=== PATIENT | female | born 1985 | race Caucasian/White ===

== ENCOUNTER 2023-07-27 17:22 | Observation (INO) | payer OTHER ==
[2023-07-27 20:13] LABS: Absolute Neutrophil Ct (ANC) 9.19 x10^3/uL (1.4-6.9); BASOPHIL % 0.5 % (0.0-0.4); Basophil (Absolute #) 0.06 x10^3/uL (0-0.4); Eosinophil (Absolute #) 0.12 x10^3/uL (0-0.5); Hemoglobin 13.5 g/dL (12.0-16.0); IMMATURE GRAN # 0.06 x10^3u/L (0.00-0.03); IMMATURE GRAN % 0.5 % (0.00-0.4); Lymphocyte (Absolute #) 1.93 x10^3/uL (1.0-4.6); Lymphocytes % 16.2 % (24.0-44.0); Mean Corpuscular Hemoglobin 28.2 pg (26-32); Mean Corpuscular Hgb Concent. 31.4 g/dL (32-36); Monocyte (Absolute #) 0.53 x10^3/uL (0.0-1.3); Monocytes % 4.5 % (0.0-12.0); Neutrophil % 77.3 % (36.0-66.0); Platelet Count 286 x10^3/uL (150-450); Red Blood Count 4.78 x10^6/uL (4.1-5.4); Red Cell Distribution Width 14.2 % (11.5-14.0); White Blood Count 11.9 x10^3/uL (4.0-10.5)
[2023-07-27 20:24] LABS: HCG SERUM TEST NEGATIVE (NEGATIVE)
[2023-07-27 20:26] LABS: ALBUMIN 4.1 g/dL (3.5-5.0); ANION GAP 11.2 MEQ/L (5-15); BILIRUBIN,TOTAL 0.4 mg/dL (0.2-1.3); Calcium 9.3 mg/dL (8.4-10.2); Creatinine 1 0.66 mg/dL (0.52-1.04); EST GLOMERULAR FILTRATION RATE 115.1 ML/MIN; Potassium 4.1 mmol/L (3.5-5.1); Total Protein 7.6 g/dL (6.3-8.2)
[2023-07-27 20:27] LABS: INR 0.9 (0.8-3.0); PROTIME 9.9 SECONDS (9.4-12.5); PTT 25.7 SECONDS (25.1-36.5)
[2023-07-27 21:01] LABS: ADD URINE CULTURE? NO (NO); Appearance Clear (Clear); Bacteria None Seen /HPF (None Seen); Bilirubin Negative (Negative); Blood Moderate (Negative); Epithelial Cells Rare /HPF (None Seen); Glucose, Urine Negative (Negative); Hyaline Casts NONE SEEN /LPF (0-2); Ketones Negative (Negative); Leukocyte Esterase Negative (Negative); Nitrite Negative (Negative); Protein,Urine Dip Negative (Negative); RBC 0-2 /HPF (0-5); Specific Gravity 1.015 (1.005-1.030); Urobilinogen 0.2 mg/dL (0.2); WBC 0-2 /HPF (0-5)
--- NOTE | 2023-07-27 22:04 | ERPHSYRPT ---
- History of Present Illness Time Seen by Provider: 07/27/23 19:46 Source: patient Exam Limitations: no limitations Patient Subjective Stated Complaint: pt reports yesterday while doing some light housework she started to have facial tingling, shortness of breath, and some pins and needles sensations. pt reports she presented to the ED at [facility] and was evaluated and discharged. pt reports today at work she started to feel worse and had similar s/s. states she felt heavy all over and felt like she might pass out. states shes also had a slight headache since then as well. Triage Nursing Assessment: pt is aox3, pupils perrl, speech is clear, no facial droop noted, pt hand headhunter strong and equal, pt is calm, afebrile, resps easy and non labored, cap refill < 3 seconds, radial pulses strong and equal, abd soft non tender, pt skin pink warm dry. pt ambulatory to trt room with no difficulties at this time. Physician History: Patient is here with near syncopal episodes over the past 24 hours with 3 hospital visits. Patient states that she was doing some light housework yesterday and started feeling some facial tingling, shortness of breath, some pins and needle sensation. No chest pain. Shortness of breath was only momentary. No longer feeling short of breath. No other signs or symptoms of a pulmonary embolism. Patient was seen at [facility] emergency department. She states that she had a head CT" negative workup". States that she continued to have paresthesias and facial numbness today. This was a bilateral. No unilateral, localizing symptoms. She saw her PCP and some blood work was orderjay d. Patient states that she still feels "heavy all over". With a slight headache. Therefore returns to the emergency department tonight Allergies/Adverse Reactions: Latex, Natural Rubber Allergy (Verified 07/27/23 19:50) Home Medications: Albuterol Sulfate Mdi [ALBUTEROL/Proair Hfa MDI] 2 puffs IH UD 07/27/23 [History] Biotin/Lutein [Biotin Plus 5,000 Mcg Tablet] 1 each PO DAILY 07/27/23 [History] Cholecalciferol (Vitamin D3) [Vitamin D3] 125 mcg PO DAILY 07/27/23 [History] Cyanocobalamin (Vitamin B-12) [Vitamin B12] 1,000 mcg PO DAILY 07/27/23 [History] Famotidine [Pepcid] 40 mg PO DAILY 07/27/23 [History] Fluticasone/Umeclidin/Vilanter [Trelegy Ellipta 200-62.5-25] 1 puff IH DAILY 07/27/23 [History] Folic Acid 0.8 mg PO DAILY 07/27/23 [History] Iron 65 mg PO DAILY 07/27/23 [History] Labetalol HCl 100 mg [Trandate 100 MG] 1.5 mg PO DAILY 07/27/23 [History] Loratadine 10 mg [Claritin 10 mg] 10 mg PO DAILY 07/27/23 [History] Metformin HCl [Metformin HCl ER] 750 mg PO BID 07/27/23 [History] Methylcellulose [Citrucel] 500 mg PO DAILY 07/27/23 [History] Naproxen 500 mg [Naprosyn 500 MG] 500 mg PO BIDPRN PRN 07/27/23 [History] Ondansetron ODT 4 MG [Zofran Odt 4 mg] 4 mg PO Q6HPRN PRN 07/27/23 [History] PANTOPRAZOLE 40 mg Tablet [Protonix 40MG Tablet] 40 mg PO DAILY 07/27/23 [History] Vitamin E (Dl,Tocopheryl Acet) [Vitamin E] 180 mg PO DAILY 07/27/23 [History] hydroCHLOROthiazide [Hydrochlorothiazide] 12.5 mg PO DAILY 07/27/23 [History] Hx Tetanus, Diphtheria Vaccination/Date Given: (unk) Hx Influenza Vaccination/Date Given: No Hx Pneumococcal Vaccination/Date Given: No Immunizations Up to Date: Yes Travel Risk - International Travel Have you traveled outside of the country in past 3 weeks: No - Coronavirus Screening Are you exhibiting any of the following symptoms?: No Close contact with a COVID-19 positive Pt in past 14-21 Days: No - Vaccine Status Have you recieved a Covid-19 vaccination: No - Past Medical History Pertinent Past Medical History: Yes Cardiac History: Hypertension Respiratory History: Asthma, Sleep Apnea Musculoskeletal History: Arthritis GI Medical History: GERD, Gallbladder Disease Female Reproductive Disorders: Other Other Medical History: pre-diabetic. cyst on L kidney and kidney stone. PCOS. arthritis back and knee - Social History Smoking Status: Never smoker Exposure to second hand smoke: No Drug Use: none Patient Lives Alone: No - Female History Hx Last Menstrual Period: 07/27/23 Hx Now: No - Nursing Vital Signs Nursing Vital Signs: Initial Vital Signs Pulse Rate 87 07/27/23 19:35 Respiratory Rate 18 07/27/23 19:35 Blood Pressure 135/88 07/27/23 19:35 O2 Sat by Pulse Oximetry 97 07/27/23 19:35 Pain Scale Pain Intensity 0 - Physical Exam SpO2: 96 Comments: 07/27/23 22:37 Review of Systems Constitutional: Negative for fever. HENT: Negative for congestion. Respiratory: Negative for shortness of breath. Cardiovascular: Negative for chest pain. Gastrointestinal: Negative for abdominal pain. Genitourinary: Negative for dysuria. Musculoskeletal: Negative for back pain. Skin: Negative for rash. Neurological: Negative for headaches. Psychiatric/Behavioral: Negative for behavioral problems. All other systems reviewed and are negative. Physical Exam Vitals signs and nursing note reviewed. Constitutional: Appearance: Patient is well-developed. HENT: Head: Normocephalic and atraumatic. Eyes: Conjunctiva/sclera: Conjunctivae normal. Neck: Musculoskeletal: Normal range of motion. Trachea: No tracheal deviation. Cardiovascular: Rate and Rhythm: Normal rate. Pulmonary: Effort: Pulmonary effort is normal. No respiratory distress. Abdominal: Palpations: Abdomen is soft. Musculoskeletal: General: No deformity. Skin: General: Skin is warm and dry. Neurological/ Psychiatric: Mental Status: Mental status, behavior, interaction with environment is appropriate for patient's age and condition Motor: There is no pronator drift of out-stretched arms. Muscle bulk and tone are normal. Strength is full bilaterally. Reflexes: Reflexes are 2+ and symmetric at the biceps, triceps, knees, and ankles. Plantar responses are flexor. Sensory: Light touch sense are intact in bilateral upper and lower extremities. There is no sign of neglect. Coordination: Rapid alternating movements are intact. There is no dysmetria on [id number] and [id number]. There are no abnormal or extraneous movements. Romberg is absent. Gait/Stance: Posture is normal, patient is ambultory without difficuly to bed - Course Nursing assessment & vital signs reviewed: Yes EKG Interpreted by Me: Sinus Rhythm (Sinus rhythm, rate of 85, AK interval 162, QRS 105, QTc is 430, no STEMI, no other ST changes) Ordered Tests: Active Orders 24 hr Category Date Time Status Bedrest ROUTINE Activity 07/27/23 22:15 Active Call Admit Doctor for Orders ON ADMISSION Care 07/27/23 22:15 Active Agriculture Teacher STAT Care 07/27/23 19:48 Active Code Status Order ROUTINE Care 07/27/23 22:15 Active EKG-ER Only STAT Care 07/27/23 19:47 Active Fall Protocol ROUTINE Care 07/27/23 22:15 Active IV Insertion STAT Care 07/27/23 19:47 Active NPO (ED) STAT Care 07/27/23 19:[address] in Observation ROUTINE Care 07/27/23 22:15 Active House Regular Diet Diet 07/28/23 Breakfast Active CHEST 1 VIEW (PORTABLE) Stat Exams 07/27/23 19:48 Taken HEAD WITHOUT CONTRAST [CT] Stat Exams 07/27/23 19:48 Taken CBC W DIFF Stat Lab 07/27/23 20:00 Completed CMP Stat Lab 07/27/23 20:00 Completed HCG QUALITATIVE, SERUM Stat Lab 07/27/23 19:00 Completed PROTIME WITH INR Stat Lab 07/27/23 20:00 Completed PTT Stat Lab 07/27/23 20:00 Completed TROPONIN Q4H Lab 07/27/23 20:00 Completed TROPONIN Q4H Lab 07/28/23 00:00 Ordered TROPONIN Q4H Lab 07/28/23 04:00 Ordered UA W/RFX UR CULTURE Stat Lab 07/27/23 20:06 Completed Pulse Oximetry CONTINUOUS RT 07/27/23 22:15 Active Respiratory Therapy Consult ONCE RT 07/27/23 22:15 Active Lab/Rad Data: Laboratory Result Diagrams 07/27/23 20:00 07/27/23 20:00 Laboratory Results 07/27/23 07/27/23 07/27/23 Range/Units 20:06 20:00 20:00 WBC 11.9 H (4.0-10.5) x10^3/uL RBC 4.78 (4.1-5.4) x10^6/uL Hgb 13.5 (12.0-16.0) g/dL Hct 43.0 (35-47) % MCV 90.0 (78-100) fL MCH 28.2 (26-32) pg MCHC 31.4 L (32-36) g/dL RDW 14.2 H (11.5-14.0) % Plt Count 286 (150-450) x10^3/uL MPV 11.0 (7.5-11.0) fL Gran % 77.3 H (36.0-66.0) % Immature Gran % (Auto) 0.5 H (0.00-0.4) % Nucleat RBC Rel Count 0.0 (0.00-0.1) % Eos # (Auto) 0.12 (0-0.5) x10^3/uL Immature Gran # (Auto) 0.06 H (0.00-0.03) x10^3u/L Absolute Lymphs (auto) 1.93 (1.0-4.6) x10^3/uL Absolute Monos (auto) 0.53 (0.0-1.3) x10^3/uL Absolute Nucleated RBC 0.00 (0.00-0.01) x10^3u/L Lymphocytes % 16.2 L (24.0-44.0) % Monocytes % 4.5 (0.0-12.0) % Eosinophils % 1.0 (0.00-5.0) % Basophils % 0.5 (0.0-0.4) % Absolute Granulocytes 9.19 H (1.4-6.9) x10^3/uL Basophils # 0.06 (0-0.4) x10^3/uL PT (9.4-12.5) SECONDS INR (0.8-3.0) APTT (25.1-36.5) SECONDS Sodium (135-145) mmol/L Potassium (3.5-5.1) mmol/L Chloride (98-107) mmol/L Carbon Dioxide (22-30) mmol/L Anion Gap (5-15) MEQ/L BUN (7-17) mg/dL Creatinine (0.52-1.04) mg/dL Estimated GFR ML/MIN Glucose (74-106) mg/dL Calcium (8.4-10.2) mg/dL Total Bilirubin (0.2-1.3) mg/dL AST (14-36) U/L ALT (0-35) U/L Alkaline Phosphatase (38-126) U/L Troponin I < 0.012 (0.000-0.034) ng/mL Serum Total Protein (6.3-8.2) g/dL Albumin (3.5-5.0) g/dL Serum HCG, Qual (NEGATIVE) Urine Color Yellow (Yellow) Urine Appearance Clear (Clear) Urine pH 8.0 (4.6-8.0) Ur Specific [place] 1.015 (1.005-1.030) Urine Protein Negative (Negative) Urine Glucose (UA) Negative (Negative) mg/dL Urine Ketones Negative (Negative) Urine Blood Moderate A (Negative) Urine Nitrite Negative (Negative) Urine Bilirubin Negative (Negative) Urine Urobilinogen 0.2 (0.2) mg/dL Ur Leukocyte Esterase Negative (Negative) U Hyaline Cast (Auto) NONE SEEN (0-2) /LPF Urine Microscopic RBC 0-2 (0-5) /HPF Urine Microscopic WBC 0-2 (0-5) /HPF Ur Epithelial Cells Rare (None Seen) /HPF Urine Bacteria None Seen (None Seen) /HPF Urine Culture Reflexed NO (NO) 07/27/23 07/27/23 07/27/23 Range/Units 20:00 20:00 19:00 WBC (4.0-10.5) x10^3/uL RBC (4.1-5.4) x10^6/uL Hgb (12.0-16.0) g/dL Hct (35-47) % MCV (78-100) fL MCH (26-32) pg MCHC (32-36) g/dL RDW (11.5-14.0) % Plt Count (150-450) x10^3/uL MPV (7.5-11.0) fL Gran % (36.0-66.0) % Immature Gran % (Auto) (0.00-0.4) % Nucleat RBC Rel Count (0.00-0.1) % Eos # (Auto) (0-0.5) x10^3/uL Immature Gran # (Auto) (0.00-0.03) x10^3u/L Absolute Lymphs (auto) (1.0-4.6) x10^3/uL Absolute Monos (auto) (0.0-1.3) x10^3/uL Absolute Nucleated RBC (0.00-0.01) x10^3u/L Lymphocytes % (24.0-44.0) % Monocytes % (0.0-12.0) % Eosinophils % (0.00-5.0) % Basophils % (0.0-0.4) % Absolute Granulocytes (1.4-6.9) x10^3/uL Basophils # (0-0.4) x10^3/uL PT 9.9 (9.4-12.5) SECONDS INR 0.90 (0.8-3.0) APTT 25.7 (25.1-36.5) SECONDS Sodium 140 (135-145) mmol/L Potassium 4.1 (3.5-5.1) mmol/L Chloride 103 (98-107) mmol/L Carbon Dioxide 30 (22-30) mmol/L Anion Gap 11.2 (5-15) MEQ/L BUN 10 (7-17) mg/dL Creatinine 0.66 (0.52-1.04) mg/dL Estimated GFR 115.1 ML/MIN Glucose 116 H (74-106) mg/dL Calcium 9.3 (8.4-10.2) mg/dL Total Bilirubin 0.40 (0.2-1.3) mg/dL AST 54 H (14-36) U/L ALT 70 H (0-35) U/L Alkaline Phosphatase 125 (38-126) U/L Troponin I (0.000-0.034) ng/mL Serum Total Protein 7.6 (6.3-8.2) g/dL Albumin 4.1 (3.5-5.0) g/dL Serum HCG, Qual NEGATIVE (NEGATIVE) Urine Color (Yellow) Urine Appearance (Clear) Urine pH (4.6-8.0) Ur Specific [place] (1.005-1.030) Urine Protein (Negative) Urine Glucose (UA) (Negative) mg/dL Urine Ketones (Negative) Urine Blood (Negative) Urine Nitrite (Negative) Urine Bilirubin (Negative) Urine Urobilinogen (0.2) mg/dL Ur Leukocyte Esterase (Negative) U Hyaline Cast (Auto) (0-2) /LPF Urine Microscopic RBC (0-5) /HPF Urine Microscopic WBC (0-5) /HPF Ur Epithelial Cells (None Seen) /HPF Urine Bacteria (None Seen) /HPF Urine Culture Reflexed (NO) - Progress Progress: improved Progress Note: 07/27/23 22:37 Differential diagnosis includes: PNA, STEMI, NSTEMI, other infection, musculoskeletal pain, pneumothorax - We'll obtain basic labs, fluids, EKG, troponin, chest x-ray - EKG shows no ST changes - my read - O2 saturations consistently greater than 95%. - CXR shows no pneumonia, pneumothorax - my read Also concern for some strokelike symptoms. Bilateral so less likely with a normal neuroexam. Therefore we did obtain a head CT, UA, coagulation labs These all returned negative. No obvious head bleed on head CT. I did discuss risks and benefits of staying in the hospital. This would be for continued close cardiac monitoring, potential MRI, echocardiogram tomorrow. This would be looking for any arrhythmia, possible stroke or other neurological issue. Patient and did ultimately decide to stay. I feel this is a good plan f orward. I did discuss over the phone with on-call physician, Dr. Frank Devlin. We did discuss the case in detail. Plan for admission. Hemodynamically stable at this point in time. Counseled pt/family regarding: lab results, diagnosis, need for follow-up, rad results - Departure Departure Disposition: Observation Clinical Impression: Near syncope Condition: Stable Critical Care Time: No Referrals: LEELEE SERRATO, [employer] [Primary Care Provider] - Follow up/PCP as directed
--- NOTE | 2023-07-28 00:15 | PCM.HP ---
History of Present Illness - Chief Complaint Chief Complaint: near syncope Date: 07/27/23 History of Present Illness: Ms. SAENZ is a 38 year old female with a past medical history significant for hypertension, diabetes, hyperlipidemia, asthma, sciatica and obesity who presents to the hospital after experiencing multiple episodes of parathesias with tingling/numbness down both arms and across her neck/shoulders over the 24hours. She went to one ER where she was told it was anxiety, and was discharged, but returned to [place] with worsening symptoms. CT head negative for bleed but she has been advised for admission to get further testing. No weakness, slurred speech or gross motor deficits. She continues to have some tingling down her arms. - Review of Systems Constitutional: No Symptoms, No Fever, No Chills, No Fatigue Eyes: No Vision Changes Ears, Nose, & Throat: No Symptoms Respiratory: Short Of Breath, No Cough, No Orthopnea Cardiac: No Chest Pain, No Edema, No Palpitations Abdominal/Gastrointestinal: No Abdominal Pain, No Nausea, No Vomiting, No Diarrhea Genitourinary Symptoms: No Dysuria, No Frequency, No Hematuria Musculoskeletal: No Back Pain, No Neck Pain Skin: No Cellulitis Neurological: Parasthesia, No Dizziness, No Focal Weakness, No Gait Changes, No Headache Psychological: No Suicidal Ideations Endocrine: No Polyuria, No Polydipsia Medications & Allergies Home Medications: Home Medication List Albuterol Sulfate Mdi [ALBUTEROL/Proair Hfa MDI] 2 puffs IH Q6HPRN PRN 07/27/23 [History Confirmed 07/27/23] Biotin/Lutein [Biotin Plus 5,000 Mcg Tablet] 5,000 mcg PO HS 07/27/23 [History Confirmed 07/27/23] Calcium/Magnesium/Zinc [Rxjymsc-Hhhzedlkj-Wreg Tablet] 1 each PO HS 07/27/23 [History Confirmed 07/27/23] Cholecalciferol (Vitamin D3) [Vitamin D3] 125 mcg PO HS 07/27/23 [History Confirmed 07/27/23] Cyanocobalamin (Vitamin B-12) [Vitamin B12] 1,000 mcg PO HS 07/27/23 [History Confirmed 07/27/23] Famotidine [Pepcid] 40 mg PO HS 07/27/23 [History Confirmed 07/27/23] Fluticasone/Umeclidin/Vilanter [Trelegy Ellipta 200-62.5-25] 1 puff IH DAILY 07/27/23 [History Confirmed 07/27/23] Folic Acid 0.8 mg PO HS 07/27/23 [History Confirmed 07/27/23] Iron 65 mg PO HS 07/27/23 [History Confirmed 07/27/23] Labetalol HCl 100 mg [Trandate 100 MG] 150 mg PO HS 07/27/23 [History Confirmed 07/27/23] Loratadine 10 mg [Claritin 10 mg] 10 mg PO HS 07/27/23 [History Confirmed 07/27/23] Metformin HCl [Metformin HCl ER] 750 mg PO BID 07/27/23 [History Confirmed 07/27/23] Methylcellulose [Citrucel] 500 mg PO HS 07/27/23 [History Confirmed 07/27/23] Naproxen 500 mg [Naprosyn 500 MG] 500 mg PO BIDPRN PRN 07/27/23 [History Confirmed 07/27/23] Ondansetron ODT 4 MG [Zofran Odt 4 mg] 4 mg PO Q6HPRN PRN 07/27/23 [History Confirmed 07/27/23] PANTOPRAZOLE 40 mg Tablet [Protonix 40MG Tablet] 40 mg PO HS 07/27/23 [History Confirmed 07/27/23] Vitamin E (Dl,Tocopheryl Acet) [Vitamin E] 180 mg PO HS 07/27/23 [History Confirmed 07/27/23] hydroCHLOROthiazide [Hydrochlorothiazide] 12.5 mg PO HS 07/27/23 [History Confirmed 07/27/23] Allergies/Adverse Reactions: Allergies Allergy/AdvReac Type Severity Reaction Status Date / Time Latex, Natural Rubber Allergy Verified 07/27/23 19:50 - Past Medical History Past Medical History: Yes Neurological History: No Pertinent History ENT History: No Pertinent History Cardiac History: Hypertension Respiratory History: Asthma, Sleep Apnea Endocrine Medical History: No Pertinent History Musculoskelatal History: Arthritis GI Medical History: GERD, Gallbladder Disease History: No Pertinent History Pyscho-Social History: No Pertinent History Reproductive Disorders: Other Comment: pre-diabetic. cyst on L kidney and kidney stone. PCOS. arthritis back and knee - Female History Hx Last Menstrual Period: 07/27/23 Are you now?: No - Past Surgical History Past Surgical History: Yes Neuro Surgical History: No Pertinent History Cardiac History: No Pertinent History Respiratory Surgery: No Pertinent History GI Surgical History: Cholecystectomy Genitourinary Surgical Hx: No Pertinent History Musculskeletal Surgical Hx: No Pertinent History Female Surgical History: No Pertinent History Other Surgical History: knee surgery - Social History Smoking Status: Never smoker Exposure to second hand smoke: No Alcohol: None Drug Use: none - Social Determinants of Health Will the patient participate in the screening: Yes Do you worry about a steady place to live?: No Do you have any problems with any of the following?: No known problems In the past 12 months,have you had to go without utilities?: No Have you or anyone in your house had to go without enough: No Transportation Issues: No Has anyone in your support network made you feel unsafe?: No Does the patient want assistance with any of the above?: No - Physical Exam Vital Signs: Vital Signs - 24 hr Temp Pulse Resp BP BP Pulse Ox 07/27/23 23:42 19 07/27/23 23:00 88 14 97 07/27/23 22:42 96.3 F 91 H 19 159/89 97 07/27/23 22:40 96 07/27/23 22:00 92 H 18 163/99 95 07/27/23 21:30 91 H 29 H 155/107 96 07/27/23 21:00 88 20 146/83 96 07/27/23 20:30 86 23 148/68 96 07/27/23 20:00 88 22 167/84 94 L 07/27/23 19:35 86 16 135/88 135/88 96 General Appearance: no apparent distress, alert Neurologic Exam: oriented x 3, cooperative Ears, Nose, Throat Exam: pharynx normal Neck Exam: non-tender, supple Respiratory Exam: lungs clear, No respiratory distress Cardiovascular Exam: regular rate/rhythm Gastrointestinal/Abdomen Exam: soft Extremity Exam: No pedal edema, No swelling Skin Exam: normal color, No rash Results - Labs Lab/Micro Results: Lab Results-Last 24 Hours 07/27/23 07/27/23 07/27/23 Range/Units 19:00 20:00 20:00 WBC (4.0-10.5) x10^3/uL RBC (4.1-5.4) x10^6/uL Hgb (12.0-16.0) g/dL Hct (35-47) % MCV (78-100) fL MCH (26-32) pg MCHC (32-36) g/dL RDW (11.5-14.0) % Plt Count (150-450) x10^3/uL MPV (7.5-11.0) fL Gran % (36.0-66.0) % Immature Gran % (Auto) (0.00-0.4) % Nucleat RBC Rel Count (0.00-0.1) % Eos # (Auto) (0-0.5) x10^3/uL Immature Gran # (Auto) (0.00-0.03) x10^3u/L Absolute Lymphs (auto) (1.0-4.6) x10^3/uL Absolute Monos (auto) (0.0-1.3) x10^3/uL Absolute Nucleated RBC (0.00-0.01) x10^3u/L Lymphocytes % (24.0-44.0) % Monocytes % (0.0-12.0) % Eosinophils % (0.00-5.0) % Basophils % (0.0-0.4) % Absolute Granulocytes (1.4-6.9) x10^3/uL Basophils # (0-0.4) x10^3/uL PT 9.9 (9.4-12.5) SECONDS INR 0.90 (0.8-3.0) APTT 25.7 (25.1-36.5) SECONDS Sodium 140 (135-145) mmol/L Potassium 4.1 (3.5-5.1) mmol/L Chloride 103 (98-107) mmol/L Carbon Dioxide 30 (22-30) mmol/L Anion Gap 11.2 (5-15) MEQ/L BUN 10 (7-17) mg/dL Creatinine 0.66 (0.52-1.04) mg/dL Estimated GFR 115.1 ML/MIN Glucose 116 H (74-106) mg/dL Calcium 9.3 (8.4-10.2) mg/dL Total Bilirubin 0.40 (0.2-1.3) mg/dL AST 54 H (14-36) U/L ALT 70 H (0-35) U/L Alkaline Phosphatase 125 (38-126) U/L Troponin I (0.000-0.034) ng/mL Serum Total Protein 7.6 (6.3-8.2) g/dL Albumin 4.1 (3.5-5.0) g/dL Serum HCG, Qual NEGATIVE (NEGATIVE) Urine Color (Yellow) Urine Appearance (Clear) Urine pH (4.6-8.0) Ur Specific [place] (1.005-1.030) Urine Protein (Negative) Urine Glucose (UA) (Negative) mg/dL Urine Ketones (Negative) Urine Blood (Negative) Urine Nitrite (Negative) Urine Bilirubin (Negative) Urine Urobilinogen (0.2) mg/dL Ur Leukocyte Esterase (Negative) U Hyaline Cast (Auto) (0-2) /LPF Urine Microscopic RBC (0-5) /HPF Urine Microscopic WBC (0-5) /HPF Ur Epithelial Cells (None Seen) /HPF Urine Bacteria (None Seen) /HPF Urine Culture Reflexed (NO) 07/27/23 07/27/23 07/27/23 Range/Units 20:00 20:00 20:06 WBC 11.9 H (4.0-10.5) x10^3/uL RBC 4.78 (4.1-5.4) x10^6/uL Hgb 13.5 (12.0-16.0) g/dL Hct 43.0 (35-47) % MCV 90.0 (78-100) fL MCH 28.2 (26-32) pg MCHC 31.4 L (32-36) g/dL RDW 14.2 H (11.5-14.0) % Plt Count 286 (150-450) x10^3/uL MPV 11.0 (7.5-11.0) fL Gran % 77.3 H (36.0-66.0) % Immature Gran % (Auto) 0.5 H (0.00-0.4) % Nucleat RBC Rel Count 0.0 (0.00-0.1) % Eos # (Auto) 0.12 (0-0.5) x10^3/uL Immature Gran # (Auto) 0.06 H (0.00-0.03) x10^3u/L Absolute Lymphs (auto) 1.93 (1.0-4.6) x10^3/uL Absolute Monos (auto) 0.53 (0.0-1.3) x10^3/uL Absolute Nucleated RBC 0.00 (0.00-0.01) x10^3u/L Lymphocytes % 16.2 L (24.0-44.0) % Monocytes % 4.5 (0.0-12.0) % Eosinophils % 1.0 (0.00-5.0) % Basophils % 0.5 (0.0-0.4) % Absolute Granulocytes 9.19 H (1.4-6.9) x10^3/uL Basophils # 0.06 (0-0.4) x10^3/uL PT (9.4-12.5) SECONDS INR (0.8-3.0) APTT (25.1-36.5) SECONDS Sodium (135-145) mmol/L Potassium (3.5-5.1) mmol/L Chloride (98-107) mmol/L Carbon Dioxide (22-30) mmol/L Anion Gap (5-15) MEQ/L BUN (7-17) mg/dL Creatinine (0.52-1.04) mg/dL Estimated GFR ML/MIN Glucose (74-106) mg/dL Calcium (8.4-10.2) mg/dL Total Bilirubin (0.2-1.3) mg/dL AST (14-36) U/L ALT (0-35) U/L Alkaline Phosphatase (38-126) U/L Troponin I < 0.012 (0.000-0.034) ng/mL Serum Total Protein (6.3-8.2) g/dL Albumin (3.5-5.0) g/dL Serum HCG, Qual (NEGATIVE) Urine Color Yellow (Yellow) Urine Appearance Clear (Clear) Urine pH 8.0 (4.6-8.0) Ur Specific [place] 1.015 (1.005-1.030) Urine Protein Negative (Negative) Urine Glucose (UA) Negative (Negative) mg/dL Urine Ketones Negative (Negative) Urine Blood Moderate A (Negative) Urine Nitrite Negative (Negative) Urine Bilirubin Negative (Negative) Urine Urobilinogen 0.2 (0.2) mg/dL Ur Leukocyte Esterase Negative (Negative) U Hyaline Cast (Auto) NONE SEEN (0-2) /LPF Urine Microscopic RBC 0-2 (0-5) /HPF Urine Microscopic WBC 0-2 (0-5) /HPF Ur Epithelial Cells Rare (None Seen) /HPF Urine Bacteria None Seen (None Seen) /HPF Urine Culture Reflexed NO (NO) - Radiology Impressions Radiology Exams & Impressions: Radiology Procedures Category Date Time Status CHEST 1 VIEW (PORTABLE) Stat Exams 07/27/23 19:48 Taken HEAD WITHOUT CONTRAST [CT] Stat Exams 07/27/23 19:48 Taken - Other Procedures and Tests Respiratory Therapy 07/27/23 23:48 BiPap/CPAP ROUTINE Assessment/Plan (1) Near syncope Current Visit: Yes Status: Acute Assessment & Plan: Syncope with paresthesias/tingling down both arms - concerning for CVA or spinal stenosis or other neurologic event 1. Admit to observation status 2. Neuro checks 3. Attempt gabapentin 4. Likely needs further imaging of brain/C-spine (2) Essential (primary) hypertension Current Visit: Yes Status: Acute Assessment & Plan: Blood pressure has been controlled on home meds 1. Continue bp meds 2. Low Na diet 3. Monitor blood pressure readings Code(s): I10 - ESSENTIAL (PRIMARY) HYPERTENSION (3) Diabetes Current Visit: Yes Status: Acute Assessment & Plan: On Metformin 1. Monitor blood sugars 2. Continue Metformin 3. Check UPC 4. Check HbA1c Code(s): E11.9 - TYPE 2 DIABETES MELLITUS WITHOUT COMPLICATIONS Telemedicine Encounter - Telemedicine Encounter Telemedicine Encounter: The entirety of this encounter was performed via Telemedicine"
[2023-07-28] MEDS ORDERED: Docusate Sodium 100 MG PO PRN (00:17)
[2023-07-28] MEDS ORDERED: DUONEB 0.5-3 MG/3 ml Neb IH PRN (00:19)
[2023-07-28 04:51] LABS: ALBUMIN 3.7 g/dL (3.5-5.0); ANION GAP 10.1 MEQ/L (5-15); BILIRUBIN,TOTAL 0.5 mg/dL (0.2-1.3); Calcium 9.1 mg/dL (8.4-10.2); Creatinine 1 0.65 mg/dL (0.52-1.04); EST GLOMERULAR FILTRATION RATE 115.5 ML/MIN; Potassium 3.9 mmol/L (3.5-5.1); Total Protein 6.9 g/dL (6.3-8.2)
[2023-07-28] MEDS ORDERED: HUMALOG SQ PRN (07:39)
[2023-07-28] MEDS ORDERED: NON-FORMULARY ITEM (Albuterol Sulfate Mdi*** 8.5 GM Hfa.Aer.Ad) IH PRN (07:40)
[2023-07-28] MEDS ORDERED: Naprosyn 500 MG PO PRN (07:40)
[2023-07-28 07:44] LABS: Hematocrit 40.5 % (35-47); Hemoglobin 12.8 g/dL (12.0-16.0); Mean Cell Volume 89.2 fL (78-100); Mean Corpuscular Hemoglobin 28.2 pg (26-32); Mean Corpuscular Hgb Concent. 31.6 g/dL (32-36); Mean Platelet Volume 11.6 fL (7.5-11.0); Platelet Count 259 x10^3/uL (150-450); Red Blood Count 4.54 x10^6/uL (4.1-5.4); Red Cell Distribution Width 14.4 % (11.5-14.0); White Blood Count 11.2 x10^3/uL (4.0-10.5)
[2023-07-28] MEDS ORDERED: VENTOLIN COMMON CANISTER IH PRN (07:49)
[2023-07-28] MEDS ORDERED: MEDICATION INTERVENTION MC SCH ×2 (08:15)
[2023-07-28 08:22] VITALS: RESP 23
--- NOTE | 2023-07-28 08:33 | XRAY ---
Indication: Pneumonia. Comparison: None Portable chest demonstrates mild right hemidiaphragm elevation with adjacent atelectasis. Remaining heart and lungs unremarkable. Bony thorax intact.
--- NOTE | 2023-07-28 08:35 | XRAY ---
Indication: Pneumonia. Facial tingling 1 day. Multiple contiguous axial images obtained through the head without contrast. Comparison: None Normal appearing brain parenchyma, ventricles, and bony calvarium for patient's age. Visualized paranasal sinuses and mastoid air cells are clear. Impression: Normal CT head without contrast exam.
[2023-07-28] MEDS: Glucophage 500 MG PO SCH (08:38)
--- NOTE | 2023-07-28 09:38 | PCM.DS ---
Discharge Summary Date of Admission: 07/27/23 22:38 Date of Discharge: 07/28/23 Admitting Physician: OSMAR VALERIO MD Primary Care Provider: LEELEE SERRATO NP Allergies Allergies Latex, Natural Rubber Allergy (Verified 07/27/23 19:50) Hospital Summary - Hospital Course Hospital Course: Ms. SAENZ is a 38 year old female with a past medical history significant for hypertension, diabetes, hyperlipidemia, asthma, sciatica and morbid obesity. She presented to the hospital on 07/26 after experiencing multiple episodes of parathesias with tingling/numbness down both arms and across her neck/shoulders over the 24hours. She went to one ER where she was told it was anxiety, and was discharged, but returned to [place] with worsening symptoms. CT head negative for acute concern but she has been advised for admission to get further testing. No weakness, slurred speech or gross motor deficits. She continues to have some tingling down her arms today but explained it is minimal. She is unable to have an MRI at our facility due to her weight. She will need an open MRI OP. CXR does show mild right hemidiaphragm elevation with adjacent atelectasis. WBC is 11.2. She denies SOB and currently RA 94% O2. Doxycycline started. COVID/ FLU RSV neg ative, she can d/c today and f/u OP. She did well with PT. She denies CP, SOB, abd. pain, N/V/D. Pt did have blood in urine and pt states she is on her menstrual cycle. - Vitals & Intake/Output Vital Signs: Vital Signs Temperature 97.2 F 07/28/23 08:00 Pulse Rate 86 07/28/23 08:00 Respiratory Rate 23 07/28/23 08:00 Blood Pressure 119/65 07/28/23 08:00 O2 Sat by Pulse Oximetry 94 L 07/28/23 08:00 Intake & Output: Intake & Output 07/25/23 07/26/23 07/27/23 07/28/23 10:59 11:59 11:59 11:59 Weight 174.6 kg - Lab Result Diagrams: 07/28/23 07:40 07/28/23 04:18 Lab Results-Last 24 Hrs: Lab Results-Last 24 Hours 03/11/24 03/11/24 03/11/24 Range/Units 19:00 20:00 20:00 WBC (4.0-10.5) x10^3/uL RBC (4.1-5.4) x10^6/uL Hgb (12.0-16.0) g/dL Hct (35-47) % MCV (78-100) fL MCH (26-32) pg MCHC (32-36) g/dL RDW (11.5-14.0) % Plt Count (150-450) x10^3/uL MPV (7.5-11.0) fL Gran % (36.0-66.0) % Immature Gran % (Auto) (0.00-0.4) % Nucleat RBC Rel Count (0.00-0.1) % Eos # (Auto) (0-0.5) x10^3/uL Immature Gran # (Auto) (0.00-0.03) x10^3u/L Absolute Lymphs (auto) (1.0-4.6) x10^3/uL Absolute Monos (auto) (0.0-1.3) x10^3/uL Absolute Nucleated RBC (0.00-0.01) x10^3u/L Lymphocytes % (24.0-44.0) % Monocytes % (0.0-12.0) % Eosinophils % (0.00-5.0) % Basophils % (0.0-0.4) % Absolute Granulocytes (1.4-6.9) x10^3/uL Basophils # (0-0.4) x10^3/uL PT 9.9 (9.4-12.5) SECONDS INR 0.90 (0.8-3.0) APTT 25.7 (25.1-36.5) SECONDS Sodium 140 (135-145) mmol/L Potassium 4.1 (3.5-5.1) mmol/L Chloride 103 (98-107) mmol/L Carbon Dioxide 30 (22-30) mmol/L Anion Gap 11.2 (5-15) MEQ/L BUN 10 (7-17) mg/dL Creatinine 0.66 (0.52-1.04) mg/dL Estimated GFR 115.1 ML/MIN Glucose 116 H (74-106) mg/dL POC Glucometer (74 to 106) mg/dL Hemoglobin A1c (4.5-6.0) % Calcium 9.3 (8.4-10.2) mg/dL Total Bilirubin 0.40 (0.2-1.3) mg/dL AST 54 H (14-36) U/L ALT 70 H (0-35) U/L Alkaline Phosphatase 125 (38-126) U/L Troponin I (0.000-0.034) ng/mL Serum Total Protein 7.6 (6.3-8.2) g/dL Albumin 4.1 (3.5-5.0) g/dL Serum HCG, Qual NEGATIVE (NEGATIVE) Urine Color (Yellow) Urine Appearance (Clear) Urine pH (4.6-8.0) Ur Specific [place] (1.005-1.030) Urine Protein (Negative) Urine Glucose (UA) (Negative) mg/dL Urine Ketones (Negative) Urine Blood (Negative) Urine Nitrite (Negative) Urine Bilirubin (Negative) Urine Urobilinogen (0.2) mg/dL Ur Leukocyte Esterase (Negative) U Hyaline Cast (Auto) (0-2) /LPF Urine Microscopic RBC (0-5) /HPF Urine Microscopic WBC (0-5) /HPF Ur Epithelial Cells (None Seen) /HPF Urine Bacteria (None Seen) /HPF Urine Culture Reflexed (NO) 07/27/23 07/27/23 07/27/23 Range/Units 20:00 20:00 20:06 WBC 11.9 H (4.0-10.5) x10^3/uL RBC 4.78 (4.1-5.4) x10^6/uL Hgb 13.5 (12.0-16.0) g/dL Hct 43.0 (35-47) % MCV 90.0 (78-100) fL MCH 28.2 (26-32) pg MCHC 31.4 L (32-36) g/dL RDW 14.2 H (11.5-14.0) % Plt Count 286 (150-450) x10^3/uL MPV 11.0 (7.5-11.0) fL Gran % 77.3 H (36.0-66.0) % Immature Gran % (Auto) 0.5 H (0.00-0.4) % Nucleat RBC Rel Count 0.0 (0.00-0.1) % Eos # (Auto) 0.12 (0-0.5) x10^3/uL Immature Gran # (Auto) 0.06 H (0.00-0.03) x10^3u/L Absolute Lymphs (auto) 1.93 (1.0-4.6) x10^3/uL Absolute Monos (auto) 0.53 (0.0-1.3) x10^3/uL Absolute Nucleated RBC 0.00 (0.00-0.01) x10^3u/L Lymphocytes % 16.2 L (24.0-44.0) % Monocytes % 4.5 (0.0-12.0) % Eosinophils % 1.0 (0.00-5.0) % Basophils % 0.5 (0.0-0.4) % Absolute Granulocytes 9.19 H (1.4-6.9) x10^3/uL Basophils # 0.06 (0-0.4) x10^3/uL PT (9.4-12.5) SECONDS INR (0.8-3.0) APTT (25.1-36.5) SECONDS Sodium (135-145) mmol/L Potassium (3.5-5.1) mmol/L Chloride (98-107) mmol/L Carbon Dioxide (22-30) mmol/L Anion Gap (5-15) MEQ/L BUN (7-17) mg/dL Creatinine (0.52-1.04) mg/dL Estimated GFR ML/MIN Glucose (74-106) mg/dL POC Glucometer (74 to 106) mg/dL Hemoglobin A1c (4.5-6.0) % Calcium (8.4-10.2) mg/dL Total Bilirubin (0.2-1.3) mg/dL AST (14-36) U/L ALT (0-35) U/L Alkaline Phosphatase (38-126) U/L Troponin I < 0.012 (0.000-0.034) ng/mL Serum Total Protein (6.3-8.2) g/dL Albumin (3.5-5.0) g/dL Serum HCG, Qual (NEGATIVE) Urine Color Yellow (Yellow) Urine Appearance Clear (Clear) Urine pH 8.0 (4.6-8.0) Ur Specific [place] 1.015 (1.005-1.030) Urine Protein Negative (Negative) Urine Glucose (UA) Negative (Negative) mg/dL Urine Ketones Negative (Negative) Urine Blood Moderate A (Negative) Urine Nitrite Negative (Negative) Urine Bilirubin Negative (Negative) Urine Urobilinogen 0.2 (0.2) mg/dL Ur Leukocyte Esterase Negative (Negative) U Hyaline Cast (Auto) NONE SEEN (0-2) /LPF Urine Microscopic RBC 0-2 (0-5) /HPF Urine Microscopic WBC 0-2 (0-5) /HPF Ur Epithelial Cells Rare (None Seen) /HPF Urine Bacteria None Seen (None Seen) /HPF Urine Culture Reflexed NO (NO) 07/28/23 07/28/23 07/28/23 Range/Units 00:25 04:18 04:18 WBC (4.0-10.5) x10^3/uL RBC (4.1-5.4) x10^6/uL Hgb (12.0-16.0) g/dL Hct (35-47) % MCV (78-100) fL MCH (26-32) pg MCHC (32-36) g/dL RDW (11.5-14.0) % Plt Count (150-450) x10^3/uL MPV (7.5-11.0) fL Gran % (36.0-66.0) % Immature Gran % (Auto) (0.00-0.4) % Nucleat RBC Rel Count (0.00-0.1) % Eos # (Auto) (0-0.5) x10^3/uL Immature Gran # (Auto) (0.00-0.03) x10^3u/L Absolute Lymphs (auto) (1.0-4.6) x10^3/uL Absolute Monos (auto) (0.0-1.3) x10^3/uL Absolute Nucleated RBC (0.00-0.01) x10^3u/L Lymphocytes % (24.0-44.0) % Monocytes % (0.0-12.0) % Eosinophils % (0.00-5.0) % Basophils % (0.0-0.4) % Absolute Granulocytes (1.4-6.9) x10^3/uL Basophils # (0-0.4) x10^3/uL PT (9.4-12.5) SECONDS INR (0.8-3.0) APTT (25.1-36.5) SECONDS Sodium 138 (135-145) mmol/L Potassium 3.9 (3.5-5.1) mmol/L Chloride 105 (98-107) mmol/L Carbon Dioxide 27 (22-30) mmol/L Anion Gap 10.1 (5-15) MEQ/L BUN 11 (7-17) mg/dL Creatinine 0.65 (0.52-1.04) mg/dL Estimated GFR 115.5 ML/MIN Glucose 159 H (74-106) mg/dL POC Glucometer (74 to 106) mg/dL Hemoglobin A1c (4.5-6.0) % Calcium 9.1 (8.4-10.2) mg/dL Total Bilirubin 0.50 (0.2-1.3) mg/dL AST 47 H (14-36) U/L ALT 58 H (0-35) U/L Alkaline Phosphatase 115 (38-126) U/L Troponin I < 0.012 < 0.012 (0.000-0.034) ng/mL Serum Total Protein 6.9 (6.3-8.2) g/dL Albumin 3.7 (3.5-5.0) g/dL Serum HCG, Qual (NEGATIVE) Urine Color (Yellow) Urine Appearance (Clear) Urine pH (4.6-8.0) Ur Specific [place] (1.005-1.030) Urine Protein (Negative) Urine Glucose (UA) (Negative) mg/dL Urine Ketones (Negative) Urine Blood (Negative) Urine Nitrite (Negative) Urine Bilirubin (Negative) Urine Urobilinogen (0.2) mg/dL Ur Leukocyte Esterase (Negative) U Hyaline Cast (Auto) (0-2) /LPF Urine Microscopic RBC (0-5) /HPF Urine Microscopic WBC (0-5) /HPF Ur Epithelial Cells (None Seen) /HPF Urine Bacteria (None Seen) /HPF Urine Culture Reflexed (NO) 07/28/23 07/28/23 07/28/23 Range/Units 05:10 07:40 08:05 WBC 11.2 H (4.0-10.5) x10^3/uL RBC 4.54 (4.1-5.4) x10^6/uL Hgb 12.8 (12.0-16.0) g/dL Hct 40.5 (35-47) % MCV 89.2 (78-100) fL MCH 28.2 (26-32) pg MCHC 31.6 L (32-36) g/dL RDW 14.4 H (11.5-14.0) % Plt Count 259 (150-450) x10^3/uL MPV 11.6 H (7.5-11.0) fL Gran % (36.0-66.0) % Immature Gran % (Auto) (0.00-0.4) % Nucleat RBC Rel Count (0.00-0.1) % Eos # (Auto) (0-0.5) x10^3/uL Immature Gran # (Auto) (0.00-0.03) x10^3u/L Absolute Lymphs (auto) (1.0-4.6) x10^3/uL Absolute Monos (auto) (0.0-1.3) x10^3/uL Absolute Nucleated RBC (0.00-0.01) x10^3u/L Lymphocytes % (24.0-44.0) % Monocytes % (0.0-12.0) % Eosinophils % (0.00-5.0) % Basophils % (0.0-0.4) % Absolute Granulocytes (1.4-6.9) x10^3/uL Basophils # (0-0.4) x10^3/uL PT (9.4-12.5) SECONDS INR (0.8-3.0) APTT (25.1-36.5) SECONDS Sodium (135-145) mmol/L Potassium (3.5-5.1) mmol/L Chloride (98-107) mmol/L Carbon Dioxide (22-30) mmol/L Anion Gap (5-15) MEQ/L BUN (7-17) mg/dL Creatinine (0.52-1.04) mg/dL Estimated GFR ML/MIN Glucose (74-106) mg/dL POC Glucometer 149 H (74 to 106) mg/dL Hemoglobin A1c 6.26 H (4.5-6.0) % Calcium (8.4-10.2) mg/dL Total Bilirubin (0.2-1.3) mg/dL AST (14-36) U/L ALT (0-35) U/L Alkaline Phosphatase (38-126) U/L Troponin I (0.000-0.034) ng/mL Serum Total Protein (6.3-8.2) g/dL Albumin (3.5-5.0) g/dL Serum HCG, Qual (NEGATIVE) Urine Color (Yellow) Urine Appearance (Clear) Urine pH (4.6-8.0) Ur Specific [place] (1.005-1.030) Urine Protein (Negative) Urine Glucose (UA) (Negative) mg/dL Urine Ketones (Negative) Urine Blood (Negative) Urine Nitrite (Negative) Urine Bilirubin (Negative) Urine Urobilinogen (0.2) mg/dL Ur Leukocyte Esterase (Negative) U Hyaline Cast (Auto) (0-2) /LPF Urine Microscopic RBC (0-5) /HPF Urine Microscopic WBC (0-5) /HPF Ur Epithelial Cells (None Seen) /HPF Urine Bacteria (None Seen) /HPF Urine Culture Reflexed (NO) Micro Results-Entire Visit: Accuchecks Date 07/28/23 Time 08:20 - Radiology Exams Ordered Rad Exams-Entire Visit: Radiology Procedures Category Date Time Status CHEST 1 VIEW (PORTABLE) Stat Exams 07/27/23 19:48 Completed HEAD WITHOUT CONTRAST [CT] Stat Exams 07/27/23 19:48 Completed MRI BRAIN W & W/O CONTRAST [MRI] Routine Exams 07/28/23 09:00 Ordered - Procedures and Test Procedures and Tests throughout Hospitalization: Therapy Orders & Screens 07/27/23 22:15 Respiratory Therapy Consult ONCE Comment: Reason For Exam: 07/27/23 23:48 BiPap/CPAP ROUTINE Comment: Diagnosis: near syncope 07/28/23 00:17 PT Eval & Treat ( Order) ONCE Reason for Eval:: weakness/paresthesia Diagnosis: near syncope Discharge Exam General Appearance: no apparent distress, alert, obese Neurologic Exam: alert, oriented x 3, cooperative, 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 II-XII nml as tested, normal mood/affect, nml cerebellar function, nml station & gait, sensation nml, No motor deficits Eye Exam: PERRL, EOMI, eyes nml inspection Ears, Nose, Throat Exam: normal ENT inspection, pharynx normal, moist mucous membranes Neck Exam: normal inspection, non-tender, supple, full range of motion Respiratory Exam: normal breath sounds, lungs clear, No respiratory distress Cardiovascular Exam: regular rate/rhythm, normal heart sounds Gastrointestinal/Abdomen Exam: soft, No tenderness, No mass Pelvic Exam: deferred Rectal Exam: deferred Back Exam: normal inspection, normal range of motion, No CVA tenderness, No vertebral tenderness Extremity Exam: normal inspection, normal range of motion Skin Exam: normal color, warm, dry Final Diagnosis/Problem List - Final Discharge Diagnosis/Problem (1) Paresthesia of upper extremity Current Visit: Yes Status: Acute Assessment & Plan: - Improved today - CT negative - unable to fit in MRI machine here and will need to f/u OP for open MRI - 2:2 pneumonia? Code(s): R20.2 - PARESTHESIA OF SKIN (2) Diabetes Current Visit: Yes Status: Acute Assessment & Plan: - accuchecks ac/hs - humalog s/s Code(s): E11.9 - TYPE 2 DIABETES MELLITUS WITHOUT COMPLICATIONS (3) Essential (primary) hypertension Current Visit: Yes Status: Acute Assessment & Plan: - BP stable - Continue home BP meds Code(s): I10 - ESSENTIAL (PRIMARY) HYPERTENSION (4) Near syncope Current Visit: Yes Status: Acute Assessment & Plan: -unable to fit in MRI machine here and will need to f/u OP for open MRI - Head CT 07/26: negative for any acute concern (5) Pneumonia Current Visit: Yes Status: Acute Assessment & Plan: - Procal 0.098 - Doxycycline started - room air- 94% - COVID/flu/ RSV negative - Chest XR 07/26 Portable chest demonstrates mild right hemidiaphragm elevation with adjacent atelectasis. Remaining heart and lungs unremarkable. Bony thorax intact. Code(s): J18.9 - PNEUMONIA, UNSPECIFIED ORGANISM (6) Morbid obesity with BMI of 50.0-59.9, adult Current Visit: Yes Status: Chronic Assessment & Plan: - advised diet and exercise control - unable to fit in MRI machine here and will need to f/u OP for open MRI Code(s): E66.01 - MORBID (SEVERE) OBESITY DUE TO EXCESS CALORIES; Z68.43 - BODY MASS INDEX [BMI] 50.0-59.9, ADULT - Discharge Discharge Date: 07/28/23 Disposition: Home, Self-Care Condition: Stable Prescriptions: New Doxycycline Hyclate 100 mg [Vibramycin 100 MG] 100 mg PO BID 5 Days #9 tablet Continue Famotidine [Pepcid] 40 mg PO HS PANTOPRAZOLE 40 mg Tablet [Protonix 40MG Tablet] 40 mg PO HS Metformin HCl [Metformin HCl ER] 750 mg PO BID hydroCHLOROthiazide [Hydrochlorothiazide] 12.5 mg PO HS Labetalol HCl 100 mg [Trandate 100 MG] 150 mg PO HS Methylcellulose [Citrucel] 500 mg PO HS Loratadine 10 mg [Claritin 10 mg] 10 mg PO HS Iron 65 mg PO HS Cholecalciferol (Vitamin D3) [Vitamin D3] 125 mcg PO HS Folic Acid 0.8 mg PO HS Biotin/Lutein [Biotin Plus 5,000 Mcg Tablet] 5,000 mcg PO HS Vitamin E (Dl,Tocopheryl Acet) [Vitamin E] 180 mg PO HS Cyanocobalamin (Vitamin B-12) [Vitamin B12] 1,000 mcg PO HS Ondansetron ODT 4 MG [Zofran Odt 4 mg] 4 mg PO Q6HPRN PRN PRN Reason: Nausea Albuterol Sulfate Mdi [ALBUTEROL/Proair Hfa MDI] 2 puffs IH Q6HPRN PRN PRN Reason: Shortness Of Breath/Wheezing Naproxen 500 mg [Naprosyn 500 MG] 500 mg PO BIDPRN PRN PRN Reason: Pain Fluticasone/Umeclidin/Vilanter [Trelegy Ellipta 200-62.5-25] 1 puff IH DAILY Calcium/Magnesium/Zinc [Ntrgjjt-Afxpqpgnp-Nkaf Tablet] 1 each PO HS Follow up with: LEELEE SERRATO NP [Primary Care Provider] - 08/07/23 11:00 am
[2023-07-28] MEDS ORDERED: Protonix 40MG Tablet PO SCH ×2 (10:00→22:00)
[2023-07-28] MEDS ORDERED: Trandate 100 MG PO SCH ×2 (10:00→22:00)
[2023-07-28] MEDS ORDERED: Neurontin PO SCH (10:00)
[2023-07-28] MEDS ORDERED: NON-FORMULARY ITEM (Fluticasone/Umeclidin/Vilanter [Trelegy Ellipta 200-62.5-25] 1 EACH Bl IH SCH (10:00)
[2023-07-28 10:27] LABS: INFLUENZA A NEGATIVE (NEGATIVE); INFLUENZA B NEGATIVE (NEGATIVE); RESPIRATORY SYNCTIAL VIRUS NEGATIVE (NEGATIVE); SARS-CoV-2 Xpert Express NEGATIVE (NEGATIVE)
[2023-07-28] MEDS: ZOFRAN ODT 4 MG PO PRN (10:35)
[2023-07-28] MEDS: Vibramycin 100 MG PO SCH (11:35)
[2023-07-28] MEDS: ENOXAPARIN SODIUM SQ SCH (11:36)
[2023-07-28 12:18] VITALS: BP 115/68; PULSE 81; TEMP 97.4; O2SAT 95
[2023-07-28] MEDS ORDERED: FEOSOL 325 MG PO SCH (22:00)
[2023-07-28] MEDS ORDERED: NON-FORMULARY ITEM (Cholecalciferol (Vitamin D3) [Vitamin D3] 125 MCG Capsule) PO SCH (22:00)
[2023-07-28] MEDS ORDERED: NON-FORMULARY ITEM (Hydrochlorothiazide [Hydrochlorothiazide] 12.5 MG Capsule) PO SCH (22:00)
[2023-07-28] MEDS ORDERED: METHYLCELLULOSE 500 MG PO SCH (22:00)
[2023-07-28] MEDS ORDERED: ZINC PO SCH (22:00)
[2023-07-28] MEDS ORDERED: FOLIC ACID 0.8 MG PO SCH (22:00)
[2023-07-28] MEDS ORDERED: hydroDIURIL 25 MG PO SCH (22:00)
[2023-07-28] MEDS ORDERED: VITAMIN D PO SCH (22:00)
[2023-07-28] MEDS ORDERED: NON-FORMULARY ITEM (Iron [Iron] 18 MG Tablet) PO SCH (22:00)
[2023-07-28] MEDS ORDERED: CLARITIN 10 MG PO SCH (22:00)
[2023-07-28] MEDS ORDERED: MAGNESIUM PO SCH (22:00)
[2023-07-28] MEDS ORDERED: [UNRECOGNIZED DRUG - OTHER] PO SCH (22:00)
[2023-07-28] MEDS ORDERED: LUTEIN PO SCH (22:00)
[2023-07-28] MEDS ORDERED: Vitamin E 400 UNIT SOFTGEL PO SCH (22:00)
[2023-07-28] MEDS ORDERED: Pepcid 20 MG PO SCH (22:00)
[2023-07-28] MEDS ORDERED: Calcium 500MG W/Vit D Tablet PO SCH (22:00)
[2023-07-28] MEDS ORDERED: NON-FORMULARY ITEM (Famotidine [Pepcid] 40 MG Tablet) PO SCH (22:00)
[2023-07-28] MEDS ORDERED: BIOTIN PO SCH (22:00)
[2023-07-28] MEDS ORDERED: FIBERCON 625 MG PO SCH (22:00)
[2023-07-28] MEDS ORDERED: Vitamin B-12 500 MCG PO SCH (22:00)
[2023-07-28] MEDS ORDERED: FOLATE 1 MG PO SCH (22:00)
[2023-07-28] MEDS ORDERED: CALCIUM PO SCH (22:00)
== END 2023-07-28 12:55 | disposition home or self-care (01) ==
LOC: ED 17:22 → MED SURG 22:38
PROVIDERS: ADMIT Internal Medicine Nephrology; ATTEND Internal Medicine Nephrology
DX: R20.2 Paresthesia of skin (principal); E11.9 Type 2 diabetes mellitus without complications; I10 Essential (primary) hypertension; R55 Syncope and collapse; E78.5 Hyperlipidemia, unspecified; J18.9 Pneumonia, unspecified organism; E66.01 Morbid (severe) obesity due to excess calories; Z68.43 Body mass index [BMI] 50.0-59.9, adult; Z79.899 Other long term (current) drug therapy; Z20.828 Contact with and (suspected) exposure to other viral communicable diseases
CPT/HCPCS: 0241U; 36000; 36415; 70450; 71045; 80053; 81001; 82947; 83036; 84145; 84484; 84703; 85025; 85027; 85610; 85730; 93005; 93041; 94660; 94762; 97161; 99284; Q0162; A9270-GY